=== PATIENT | female | born 1980 | race Caucasian/White ===

== ENCOUNTER 2025-03-11 02:57 | Emergency (ER) | payer SELFPAY ==
[2025-03-11] VITALS (18 sets, daily range): BP systolic 126–152; BP diastolic 64–78; PULSE 78–99; RESP 15–30; TEMP 36.6; O2SAT 97–99
--- NOTE | 2025-03-11 03:00 | RT.EKG_ITS ---
APPROVED REPORT Exam: Resting ECG Reason for Exam: chest pain Patient Location: E HR:99 bpm ECG Measurements Heart Rate 99 AXIS GA 162 P 55 QRSd 82 QRS 75 QT 346 T 49 QTc 445 Conclusion Sinus rhythm...normal P axis, V-rate 60- 99 I have reviewed and interpreted ECG and agree with software generated interpretation.
[2025-03-11 04:33] LABS: Abs Immature Grans 0.03 10^3/uL (0.0-0.06); Absolute Basophil Count 0.05 10^3/uL (0.0-0.2); Absolute Eosinophil Count 0.26 10^3/uL (0.0-0.7); Absolute Lymphocyte Count 2.94 10^3/uL (1.2-3.4); Absolute Monocyte Count 0.78 10^3/uL (0.1-0.8); Absolute Neutrophil Count 4.88 10^3/uL (1.2-6.7); Basophils % 0.6 %; Eosinophils % 2.9 %; HCT 35.8 % (36.0-46.0); HGB 10.6 g/dL (11.2-15.7); Immature Grans % 0.3 %; Lymphocytes % 32.9 %; MCH 21.7 pg (27.0-33.0); MCHC 29.6 % (32.0-36.0); MCV 73 fL (80-95); MPV 11.7 fL (8.0-11.0); Monocytes % 8.7 %; Neutrophils % 54.6 %; Platelet Count 215 10^3/uL (130-400); RBC 4.89 10^6/uL (3.93-5.22); RDW 17.5 % (11.7-14.6); RDW-SD 46.1 fL; WBC 8.94 10^3/uL (4.4-10.8)
[2025-03-11] MEDS: MYLANTA 30 ML, LIDOCAINE 2% VISCOUS UD 15 ML PO (04:33)
[2025-03-11] MEDS: Ketorolac 15 MG/ML VIAL IVP (04:34)
[2025-03-11 04:52] LABS: Microcytosis 1+
[2025-03-11 04:53] LABS: ALT 28 U/L (14-59); AST 18 U/L (15-37); Albumin 3.2 g/dL (3.4-5.0); Alkaline Phosphatase 102 U/L (46-116); Anion Gap 4.9 mmol/L (3-11); BUN 13 mg/dL (7-18); Bilirubin, Total 0.3 mg/dL (0.2-1.0); CO2 30.1 mmol/L (21.0-32.0); Chloride 104 mmol/L (98-107); Estimated GFR 76.76 (mL/min/1.73m2); Glucose 103 mg/dL (74-106); Lipase 34 U/L (<78); Potassium 4.3 mmol/L (3.5-5.1); Sodium 139 mmol/L (136-145); Total Protein 7.6 g/dL (6.4-8.2); Troponin I 7 ng/L (<or=51)
[2025-03-11 05:01] LABS: D-Dimer 1151 ng/mlFEU (<500)
[2025-03-11 05:03] LABS: PTT Activated 22.7 sec (20.6-30.2)
[2025-03-11] MEDS: Omnipaque 350 MG/ML 100 ML BTL IJ (05:26)
[2025-03-11] MEDS: Normal Saline - Diluent 50 ML VIAL IJ (05:26)
--- NOTE | 2025-03-11 05:43 | W.ED.GENAD ---
Discharge Plan Disposition Patient Disposition: Home Condition: Good Discharge Details Clinical Impression: Pulmonary embolism, Shingles Primary Care Provider: Annmarie,Local ED Provider: Jesus Nesbitt Home Meds and New Rx's Prescriptions: New valacyclovir 1 gram tablet 1,000 mg PO TID Qty: 21 0RF gabapentin [Neurontin] 300 mg capsule 300 mg PO TID Qty: 90 0RF Rx Instructions: On the first day take 1 pill, on the second day take 1 pill twice daily, on the third day and for the remainder of the prescription take 1 pill 3 times a day. Xarelto DVT-PE Treat 30d Start 15 mg (42)- 20 mg (9) tablets,dose pack See Rx Instructions .ROUTE .COMPLEX Qty: 51 0RF Rx Instructions: take one-15 mg tablet twice daily for 21 days, then one-20 mg tablet once daily; must take with meal/food Discharge Instructions Instructions: Pulmonary embolism (blood clot in the lung), Shingles Additional Instructions: At this time you have evidence of shingles on your left chest wall, as well as a pulmonary embolism inside your lung. Thankfully there is not evidence of significant heart strain or cardiac abnormality despite these clots. For the shingles, please take the antiviral medication called valacyclovir and the nerve numbing medication gabapentin as prescribed. Please apply the capsaicin cream to the irritated area twice daily. In regards to your blood clot, please take the Xarelto as prescribed. Do not miss any doses. As we discussed together it is critical that you follow-up closely with your primary care provider in [place] as soon as you get back for further evaluation and reassessment of your heart functionality. If you notice any worsening of your symptoms, or any new symptoms such as vomiting, diarrhea, fever, chills, shortness of breath, chest pain, numbness, weakness, or fainting , please return immediately to the emergency department for reevaluation. Please follow up with your primary care provider as soon as possible for reassessment and reevaluation. As always, it was a pleasure participating in your medical care today. HPI General Date/Time Provider Initiated Documentation: 03/11/25 03:00. 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 Patient flew up here 7 days ago for her travel assignment, shortly thereafter she noticed an itching and burning sensation in her left lateral chest. Symptoms continued, however this evening she states that she felt notably overwhelmed at work, and felt like she was panicking secondary to the amount of tasks that needed to be done and the frustration she had with the current system at her work. Shortly thereafter she developed worsening of the left-sided chest discomfort, as well as some mild shortness of breath. Currently she still states that she feels slightly short of breath but also has the burning and itching on her left chest wall. She denies fever or chills. She denies any calf pain or leg cramps. She does admit to some swelling in her lower extremities but states that this is chronic. She denies history of blood clots or PEs, but did have a long flight from [place] 1 week ago. No other complaints at this time. No other modifying factors. She denies cough or hemoptysis. She denies vomiting or diarrhea. Related Data Home Medications ?Medication ?Instructions ?Recorded ?Confirmed gabapentin 300 mg capsule 300 mg PO TID #90 caps 03/11/25 (Neurontin) rivaroxaban 15 mg (42)-20 mg (9) See Rx Instructions PO .COMPLEX 03/11/25 tablets in a starter pack (Xarelto #51 dose pk DVT-PE Treatment 30-Day Starter) valacyclovir 1 gram tablet 1,000 mg PO TID #21 tabs 03/11/25 Previous Rx's ?Medication ?Instructions ?Recorded gabapentin 300 mg capsule 300 mg PO TID #90 caps 03/11/25 (Neurontin) rivaroxaban 15 mg (42)-20 mg (9) See Rx Instructions PO .COMPLEX 25 tablets in a starter pack (Xarelto #51 dose pk DVT-PE Treatment 30-Day Starter) valacyclovir 1 gram tablet 1,000 mg PO TID #21 tabs 03/11/25 Allergies Allergy/AdvReac Type Severity Reaction Status Date / Time No Known Allergies Allergy Unverified 03/11/25 03:21 General Stated Complaint: Chest/Rib ELMER: 3 Exam Narrative Exam Narrative: 1.Const: Well-nourished, Well-developed, appearing stated age 2.Eyes: PERRL, no conjunctival injection, and symmetrical lids. 3.ENT: Atraumatic external nose and ears. Moist MM. Neck: Symmetric, trachea midline, No thyromegaly. 4.CVS: +S1/S2, Peripheral pulses 2+ and equal in all extremities. Brisk capillary refill in all extremities. 5.RESP: Unlabored respiratory effort. Clear to auscultation bilaterally. No wheezes rales or rhonchi 6.GI: Soft, Nontender/Nondistended, No hepatosplenomegaly. No guarding or rebound. 7.MSK: Normocephalic/Atraumatic, Extremities w/o deformity or ttp No cyanosis or clubbing, Normal movement of all extremities. No calf pain or tenderness. 8.Skin: Warm, Dry. Left lateral chest wall demonstrates areas of irritation and small vesicles and scabs over the T6 dermatome 9.Neuro: splitting machine feeder II-XII grossly intact. Sensation grossly intact, no focal neurologic deficits. 10.Psych: (AAO) x3. Appropriate mood and affect Course Vital Signs Vital signs: Vital Signs Temperature 36.6 C 03/11/25 03:11 Pulse 99 H 03/11/25 03:11 Respiratory Rate 20 03/11/25 03:11 Pulse Oximetry 99 03/11/25 03:11 Temperature 36.6 C 03/11/25 03:11 Temperature Source Tympanic 03/11/25 03:11 Pulse 99 H 03/11/25 03:11 Respiratory Rate 20 03/11/25 03:11 Respiratory Effort Short of Breath 03/11/25 03:17 Respiratory Depth Normal 03/11/25 03:17 Respiratory Pattern Normal 03/11/25 03:17 Blood Pressure 152/78 H 03/11/25 03:26 Blood Pressure Mean 102 03/11/25 03:26 Pulse Oximetry 99 03/11/25 03:11 Oxygen Delivery Method Room Air 03/11/25 03:11 Oxygen Flow Rate 0 03/11/25 03:11 Pain Level 8 03/11/25 03:17 Lab/Test Results Lab/Test Results: Laboratory Tests Range/Units 03/11/25 04:24 WBC (4.4-10.8) 10^3/uL 8.94 RBC (3.93-5.22) 10^6/uL 4.89 Hgb (11.2-15.7) g/dL 10.6 L Hct (36.0-46.0) % 35.8 L MCV (80-95) fL 73 L MCH (27.0-33.0) pg 21.7 L MCHC (32.0-36.0) % 29.6 L RDW (11.7-14.6) % 17.5 H Plt Count (130-400) 10^3/uL 215 MPV (8.0-11.0) fL 11.7 H Immature Gran % % 0.3 Neutrophils % % 54.6 Lymphocytes % % 32.9 Monocytes % % 8.7 Eosinophils % % 2.9 Basophils % % 0.6 Nucleated RBC % (0.0-0.3) % 0.0 Absolute Neutrophils (1.2-6.7) 10^3/uL 4.88 Absolute Lymphocytes (1.2-3.4) 10^3/uL 2.94 Absolute Monocytes (0.1-0.8) 10^3/uL 0.78 Absolute Eosinophils (0.0-0.7) 10^3/uL 0.26 Absolute Basophils (0.0-0.2) 10^3/uL 0.05 RBC Morphology See Below Microcytosis 1+ PT (9.1-11.1) sec 10.0 INR (0.9-1.1) 1.0 APTT (20.6-30.2) sec 22.7 D-Dimer (<500) ng/mlFEU 1151 H Sodium (136-145) mmol/L 139 Potassium (3.5-5.1) mmol/L 4.3 Chloride (98-107) mmol/L 104 Carbon Dioxide (21.0-32.0) mmol/L 30.1 Anion Gap (3-11) mmol/L 4.9 BUN (7-18) mg/dL 13 Creatinine (0.55-1.02) mg/dL 1.0 Est GFR (CKD-EPI 2020) (mL/min/1.73m2) 76.76 Glucose (74-106) mg/dL 103 Calcium (8.5-10.1) mg/dL 9.0 Total Bilirubin (0.2-1.0) mg/dL 0.3 AST (15-37) U/L 18 ALT (14-59) U/L 28 Alkaline Phosphatase (46-116) U/L 102 Troponin I (<or=51) ng/L 7 Total Protein (6.4-8.2) g/dL 7.6 Albumin (3.4-5.0) g/dL 3.2 L Lipase (<78) U/L 34 Procedure EJ/Peripheral IV/Phlebotomy Date of Procedure: 03/11/25 Time of Procedure: 06:27 Indication: Nursing/tech could not get IV Skin Cleansed in Sterile Fashion: Yes Laterality: Right Insertion Site: Antecubital Size & Type: 18 ga. 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 Patient flew up here 7 days ago for her travel assignment, shortly thereafter she noticed an itching and burning sensation in her left lateral chest. Symptoms continued, however this evening she states that she felt notably overwhelmed at work, and felt like she was panicking secondary to the amount of tasks that needed to be done and the frustration she had with the current system at her work. Shortly thereafter she developed worsening of the left-sided chest discomfort, as well as some mild shortness of breath. Currently she still states that she feels slightly short of breath but also has the burning and itching on her left chest wall. She denies fever or chills. She denies any calf pain or leg cramps. She does admit to some swelling in her lower extremities but states that this is chronic. She denies history of blood clots or PEs, but did have a long flight from [place] 1 week ago. No other complaints at this time. No other modifying factors. She denies cough or hemoptysis. She denies vomiting or diarrhea. Exam demonstrates a tearful and somewhat anxious appearing female, pulse is 99, blood pressure mildly hypertensive. Physical exam shows evidence of shingles on the left chest wall at the T6 dermatome. This appears to certainly be a source of her chest pain and symptomatology. That being said, with the patient's slightly elevated heart rate, her recent long trip, her BMI, PE is on the differential as well, given the atypical component of her shortness of breath and chest heaviness. ACS less likely. Uncertain if the shingles is the sole component or an isolated component of multiple etiologies. We will get screening EKG and reassess. 5 AM Screening EKG is benign, however with my concern for potential PE I do feel blood work and D-dimer is indicated. We will get this, and continue to monitor closely. Patient states that she feels slightly better at this time after having been able to rest in the ED outside of her workplace. 5:56 AM D-dimer is notably elevated at 1151. CTA was ordered, pending V rad report however I do see evidence of notable blood clots in the left lung alonzo. We will perform POCUS to evaluate for right heart strain. 6:[address] scan shows evidence of pulmonary embolisms. Radiology feels that there certainly may be a chronic component rather than just an acute component. Bedside ultrasound shows no evidence of significant right heart strain. Troponin and cardiac workup is otherwise benign/normal. Patient's vital signs remained stable. I discussed the patient's current status, and she states that she will be ending her contract and flying back to [place] in the next day or 2. She reassures me that she will be able to follow-up with a new primary care provider in the next week or so. I discussed in depth with her the importance of close follow-up, reassessment, formal echo, and formal reevaluation. Patient understands this. We will start her on Xarelto, first dose was given here, and a prescription for Xarelto will be given to her as well. Additionally we will give capsaicin gabapentin and valacyclovir for shingles of the left chest. Patient understands the plan. I have extensively reviewed the treatment plan and discharge instructions with the patient. I have addressed all patient concerns at this time. The patient was made aware of what symptoms to monitor for that would warrant a return to the emergency department. Discussed the plan with the patient, they demonstrate verbal understanding and agreement with our assessment and plan at this time. The documentation in this chart was dictated using [employer] dictation software. Please excuse any dictation errors. FINDINGS: Limitations: Mild motion artifact. Pulmonary arteries: Mildly prominent central pulmonary arteries. Correlate clinically for pulmonary hypertension. Aorta: No thoracic aortic aneurysm seen. Lungs: Multiple segmental and subsegmental emboli in the left upper and lower lobes. These are eccentric and nonocclusive suggesting that they may be chronic, but acute emboli cannot be definitively excluded. Comparison with prior studies and clinical correlation advised. Pleural spaces: No pleural effusion. Heart: No evidence for right heart strain. Lymph nodes: No acute abnormality seen. Diaphragm: Elevated right hemidiaphragm. Quality:SDOH Health Related Social Needs: No Data to Display Critical Care Time Critical Care Time Critical Care Time: Yes Total Critical Care Time: 30 Attestation: Upon my evaluation, this patient had a high probability of imminent or life-threatening deterioration, which required my direct attention, intervention, and personal management. I have personally provided 30 minutes of critical care time exclusive of time spent on separately billable procedures. Time includes review of laboratory data, radiology results, discussion with consultants, and monitoring for potential decompensation. Interventions were performed as documented. PFS All Active Problems (Updated 03/11/25 @ 06:23 by Jesus Nesbitt DO) Shingles (Acute) Pulmonary embolism (Chronic) Social History Smoking/Tobacco Use Status: Current every day Tobacco Type: cigarettes Smoking risk assessment performed?: Yes Alcohol Intake: current Alcohol Intake frequency: holidays/special occasions only Alcohol type: beer Drug use: Never Substance use type: does not use Housing: apartment Do you feel safe at home: Yes Do you feel safe in your relationship?: Yes POCUS Exam (ED) Limited Cardiac Exam DATE OF EXAM: 03/11/25 TIME OF EXAM: 06:28 PROVIDER THAT PERFORMED THE STUDY: Jesus Nesbitt IS THIS A REPEAT EXAM DURING THIS ENCOUNTER: no REASON FOR EXAM: Chest pain VISUALIZED STRUCTURES: Left ventricle, Right ventricle and Interventricular septum VIEW OBTAINED: Apical 4-Chamber, Parasternal long-axis and Parasternal short-axis PERTINENT FINDINGS/IMPRESSION: No apparent abnormalities Exam complete
--- NOTE | 2025-03-11 05:47 | DI.CT_ITS ---
Exam(s) CT CHEST PE CTA EXAM: CT CHEST PE CTA CLINICAL HISTORY: SOB, CP, elevated dimer, eval for PE. TECHNIQUE: Imaging Protocol: Axial CT angiography was performed with multi-slice acquisition and mu lti-planar reconstructions as well as axial, coronal and sagittal MIP reconstructions. Computer aided detection (CAD) was utilized. CONTRAST MATERIAL: Intravenous: Omnipaque 350 Contrast volume:100 ml COMPARISON: No exams were available for comparison FINDINGS: Pulmonary Arteries: Small eccentric, partially occlusive filling defect in a branch vessel to the lef t upper lobe. Additional small partially occlusive thrombus in the left lower lobe segmental branch. Due to their small size and eccentric positioning, these may be chronic. Mediastinum and Rosa Maria: No dominant adenopathy or fluid collection. Pulmonary parenchyma: No consolidation or dominant measurable mass. Pleura: No effusion or pneumothorax. Heart: The heart is not dilated. No coronary artery calcifications are seen. Aorta: Thoracic aorta non-dilated. No dissection. Upper abdomen: No acute findings. Bones: Unremarkable for age. Tubes, Catheters, and Lines: None Soft tissues: Unremarkable. IMPRESSION: Foci of partially occlusive thrombus noted in left upper and left lower lobe segmental branches. The se may represent chronic emboli. Clinical correlation recommended. The preliminary [facility] report was reviewed. RADIATION DOSE DELIVERED: Total DLP DATA REPOSITORY: All CT scans at this facility are submitted to the National Radiology Data Registry (NRDR) Dose Index Registry (DIR) with the [employer] (ACR). RADIATION OPTIMIZATION: All CT scans at this facility use at least one of these dose optimization te chniques: automated exposure control; mA and/or kV adjustment per patient size (includes targeted exa ms where dose is matched to clinical indication); or iterative reconstruction.
--- NOTE | 2025-03-11 05:58 | DI.[facility]_ITS ---
PROCEDURE INFORMATION: Exam: CTA Chest With Contrast Exam date and time: 03/11/2025 5:23 AM Age: 34 years old Clinical indication: Other: SOB, cp, elevated dimer, eval for pe TECHNIQUE: Imaging protocol: Computed tomographic angiography of the chest with contrast. Exam focused on the arteries. 3D rendering (Not supervised by radiologist): MIP and/or 3D reconstructed images were created by the technologist. Contrast material: OMNIPAQUE 350; Contrast volume: 100 ml; Contrast route: INTRAVENOUS (IV); COMPARISON: No relevant prior studies available. FINDINGS: Limitations: Mild motion artifact. Pulmonary arteries: Mildly prominent central pulmonary arteries. Correlate clinically for pulmonary hypertension. Aorta: No thoracic aortic aneurysm seen. Lungs: Multiple segmental and subsegmental emboli in the left upper and lower lobes. These are eccentric and nonocclusive suggesting that they may be chronic, but acute emboli cannot be definitively excluded. Comparison with prior studies and clinical correlation advised. Pleural spaces: No pleural effusion. Heart: No evidence for right heart strain. Lymph nodes: No acute abnormality seen. Diaphragm: Elevated right hemidiaphragm. Gallbladder and biliary ducts: Cholecystectomy. Spleen: Splenomegaly. Bones/joints: No acute pertinent abnormality seen. Soft tissues: No acute pertinent abnormality seen. IMPRESSION: 1. Pulmonary emboli as described above. 2. THIS REPORT CONTAINS FINDINGS THAT MAY BE CRITICAL TO PATIENT CARE. The findings were verbally communicated via telephone conference with GABRIELLE MATAMOROS at 5:57 AM EDT on 03/11/2025. The findings were acknowledged and understood. Dictated and Authenticated by: Autumn Tena MD. Orderin Laz Lee MD
[2025-03-11 06:55] LABS: Troponin I 6 ng/L (<or=51)
[2025-03-11 06:57] LABS: NT-proBNP 54 pg/mL (<300)
[2025-03-11] MEDS: Gabapentin 300 MG CAP PO (07:57)
[2025-03-11] MEDS: Rivaroxaban 15 MG TABLET PO (07:59)
[2025-03-11] MEDS: valACYclovir 1,000 MG TAB 1000 MG PO (07:59)
--- NOTE | 2025-03-14 16:59 | CMPROGNOTE_ITS ---
Date of service: 03/14/25 Time of Service: 16:59 Care Management Progress Note Progress Note Text Progress Note Text: ISABELLA was contacted by the ED regarding Johana, who was seen in the ED yesterday and given a prescription for Xarelto. CM spoke to Johana who stated that the [facility] pharmacy informed her that the medication would cost hundreds of dollars. CM contacted the [facility] pharmacy who stated that once her insurance information was added, her copay reduced to $60 for the written prescription. CM faxed a Xarelto coupon to the pharmacy, which brought the copay to $10/month. CM contacted Johana to inform her of the cost savings, which she was grateful for. Johana asked for a note from the hospital stating that she was seen and evaluated, which CM provided via email, at her request. Johana stated that she will be traveling back to [place] tomorrow, where she resides, and she stated that her mother has set up a follow up appointment with a primary care provider for her there. ISABELLA will continue to follow. Social Determinants of Health Screening Will the Patient Participate in the Screening?: Unable to obtain
== END 2025-03-11 08:19 | disposition home or self-care (01) ==
LOC: ER 08:40
PROVIDERS: Emergency Provider Student in an Organized Health Care Education/Training Program
DX: I26.99 Other pulmonary embolism without acute cor pulmonale (principal); B02.9 Zoster without complications; R79.1 Abnormal coagulation profile; F17.210 Nicotine dependence, cigarettes, uncomplicated
CPT/HCPCS: 36415; 71275; 76942; 80053; 83690; 93005; 93308; 96374; 99285; 83880; 84484; 85025; 85379; 85610; 85730; 93010; J1885; J3490